=== PATIENT | female | born 1975 | race Caucasian/White ===

== ENCOUNTER 2017-07-23 07:08 | Day surgery (SDC) | payer BC ==
[~2017-07-23 07:08] MED LIST: Lactated Ringers 1,000 ML IV SCH
[2017-07-23] MEDS ORDERED: DIPRIVAN 200 MG/20 ML IV ONE (07:09)
[2017-07-23] MEDS ORDERED: Lactated Ringers 1,000 ML IV ONE ×3 (07:38→10:32)
[2017-07-23] MEDS ORDERED: Sensorcaine 0.25% 10 ML ONE ×2 (09:00→09:56)
[2017-07-23] MEDS ORDERED: KEFZOL 1 GM ONE (09:49)
[2017-07-23] MEDS ORDERED: SUBLIMAZE 100 MCG/2 ML ONE (10:32)
[2017-07-23 11:41] VITALS: BP 99/62; PULSE 54; O2SAT 99
--- NOTE | 2017-07-24 08:20 | OP ---
PROCEDURE DATE/TIME: 07/23/2017 0940 PREOPERATIVE DIAGNOSES: 1) Left buttock mass. 2) Back mass. POSTOPERATIVE DIAGNOSIS: 1) Left buttock mass. 2) Back mass. PROCEDURES: 1) Excision left buttock mass 6 x 2 x 2 cm. 2) Excision back mass 2 x 0.5 cm. PROCEDURE PERFORMED BY: Mariam Sousa M.D. ESTIMATED BLOOD LOSS: Minimal. ANESTHESIA: MAC. COMPLICATIONS: None. SPECIMENS: 1) Left buttock mass 6 x 2 x 2 cm 2) Back mass 2 x 0.5 cm. HISTORY: This is a 41 year-old female who presents due to a left buttock lesion which is causing her discomfort. She states she had a cyst here previously. She had an excision. The lesion appeared to grow back but it grew back different. On exam this is a soft tissue lesion that does appear to encompass the skin and immediately underlying fatty tissue which might be a lipoma. It appears benign but it is hard to say exactly what this is as it is superficial but does extend into the fatty tissue. Excision has been discussed with the patient. All risks, benefits, alternatives. The patient would like for it to be excised. The patient was seen in the preoperative area during our review of history and physical. We marked the left buttock lesion with the patient awake and alert and then she also showed me a back lesion which is smaller than the buttock lesion this is in her right lower back region and this appears to be small subcutaneous skin lesion that she would like removed as well and so we added this to the consent and circled this as well with the patient awake and alert. She understands the risks, benefits, alternatives with the resection of this also. DESCRIPTION OF PROCEDURE: The patient was then brought back to the operative suite. She was laid in the left lateral decubitus position. Complete time out performed. Anesthesia induced. She was prepped and draped in the usual sterile fashion. First an elliptical incision was made over the lower back mass. The wound is approximately 2 x 0.5 cm. The skin and subcutaneous soft, fatty lesion was completely removed and sent to pathology. The site was hemostatic after resection. Irrigated and then closed with 3-0 nylon vertical mattress suture. We then turned her attention to the left buttock mass. Again an elliptical incision was made to encompass all of the skin and fatty tissue that was abnormal here completely removing the lesion with a small margin making incision through skin and into the deeper fatty tissue to completely excise this. This was then sent to pathology. It appears benign as well. The wound was thoroughly irrigated. Hemostasis achieved with Bovie cautery. The wound was then closed with buried interrupted 3-0 Vicryl and then a running 4-0 subcuticular Monocryl stitch. Steri-Strips and sterile dressing. The patient tolerated the procedure very well. There were no immediate complications. I have discussed all of the results and instructions with the patient's family in the postoperative area and she will follow up with me to discuss the pathology results.
== END 2017-07-23 11:50 | disposition home or self-care (01) ==
LOC: SDC 07:08
PROVIDERS: ATTEND Surgery
PROC: 0HB6XZZ Excision of Back Skin, External Approach (ICD-10-PCS; principal; 2017-07-23)
PROC: 0HB8XZZ Excision of Buttock Skin, External Approach (ICD-10-PCS; 2017-07-23)
DX: R22.2 Localized swelling, mass and lump, trunk (principal)
CPT/HCPCS: 00300; 36415; J0690; J2704; J3010